=== PATIENT | male | born 1990 | race Caucasian/White ===

== ENCOUNTER 2020-10-10 18:24 | Emergency (ER) | payer SELFPAY ==
[~2020-10-10] VITALS: Ht 175.3 cm; Wt 81.0 kg
[2020-10-10] MEDS ORDERED: LORAZEPAM 2MG/ML CPJ IM ONE (20:00)
[2020-10-10] MEDS ORDERED: HALOPERIDOL LACTATE 5MG/ML VIAL IM ONE (20:00)
[2020-10-10 21:39] LABS: BASOPHILS % 0.3 % (0.0-2.0); EOSINOPHILS % 0.2 % (0.0-5.0); HEMATOCRIT. 42.7 % (42.0-52.0); HEMOGLOBIN. 14.7 g/dL (14.0-18.0); LYMPHOCYTES % 7.6 % (20.0-50.0); MEAN CORPUSCULAR HEMOGLOBIN 30.8 pg (28.0-32.0); MEAN CORPUSCULAR VOLUME 89.4 fL (80.0-94.0); MEAN PLATELET VOLUME 8.8 fl (7.4-10.4); MONOCYTES % 6.4 % (2.0-8.0); NEUTROPHILS % 85.5 % (40.0-76.0); PLATELET 225 x1000/uL (130-400); RED BLOOD CELL COUNT 4.78 mill/uL (4.7-6.1); RED CELL DISTRIBUTION WIDTH 12.5 % (11.6-14.6)
[2020-10-10 21:46] LABS: CHLORIDE 107 mEq/L (98-107)
[2020-10-10 21:51] LABS: ETHANOL BLOOD < 10 mg/dL
[2020-10-10 23:57] VITALS: BP 102/56
== END 2020-10-11 00:37 | disposition home or self-care (01) ==
LOC: ER 18:24
DX: T40.7X1A Poisoning by cannabis (derivatives), accidental (unintentional), initial encounter (principal); G92 Toxic encephalopathy; F12.129 Cannabis abuse with intoxication, unspecified; R03.0 Elevated blood-pressure reading, without diagnosis of hypertension; R45.1 Restlessness and agitation; Y93.02 Activity, running; Y92.414 Local residential or business street as the place of occurrence of the external cause; R73.9 Hyperglycemia, unspecified; E87.6 Hypokalemia; D72.829 Elevated white blood cell count, unspecified; R94.5 Abnormal results of liver function studies; Z71.51 Drug abuse counseling and surveillance of drug abuser
CPT/HCPCS: 36415; 80048; 80076; 80307; 80320; 80329; 85025; 93005; 96372; 99284; J1630; J2060; G0480